=== PATIENT | male | born 1995 | race Caucasian/White ===

== ENCOUNTER → 2021-12-27 10:47 | Outpatient (CLI) | payer OTHER, SELFPAY ==
[2021-12-27 13:07] LABS: BUN Creatinine Ratio 15.9 (6-22); Blood Urea Nitrogen 14 mg/dL (9-20); Calcium 9.5 mg/dL (8.4-10.2); Carbon Dioxide 29 mmol/L (22-32); Chloride 104 mmol/L (98-107); Cholesterol 158 mg/dL (140-199); Estimated Glomerular Filt Rate > 60 mL/min (>60); Glucose 113 mg/dL (70-100); HDL Cholesterol 39 mg/dL (40-60); HEMOLYSIS < 15 (0-50); LDL Cholesterol Calculated 88 mg/dL (<100); Potassium 4.8 mmol/L (3.4-5.1); Sodium 141 mmol/L (137-145); Triglycerides 154 mg/dL (35-150)
[2021-12-27 13:32] LABS: TSH w/ Reflex to FT4 0.71 uIU/mL (0.47-4.68)
[2021-12-27 15:13] LABS: Creatinine Urine Random 185.6 mg/dL
[2021-12-27 15:19] LABS: Microalbumin Urine Random 2.6 mg/dL (0-1.6)
[2021-12-27 16:28] LABS: Vitamin D 25 Hydroxy (D3) 32.5 ng/mL (30.0-100.0)
== END ==
PROVIDERS: PCP Student in an Organized Health Care Education/Training Program; Referring Provider Student in an Organized Health Care Education/Training Program; Visit Provider Student in an Organized Health Care Education/Training Program
DX: I10 Essential (primary) hypertension (principal); E55.9 Vitamin D deficiency, unspecified; E66.01 Morbid (severe) obesity due to excess calories; Z13.220 Encounter for screening for lipoid disorders
CPT/HCPCS: 36415; 80048; 80061; 82043; 82306; 82570; 84443

== ENCOUNTER → 2022-02-25 14:34 | Outpatient (CLI) | payer OTHER, SELFPAY ==
--- NOTE | 2022-02-25 14:36 | DI.RAD.S_ITS ---
PROCEDURE: XR CHEST 2V INDICATIONS: shortness of breath TECHNIQUE: 2 views of the chest were acquired. COMPARISON: None. FINDINGS: Surgical changes and devices: None. Lungs and pleura: Lungs are clear. No pleural effusions or pneumothorax. Mediastinum: Mediastinal contours are normal. Heart size is normal. Bones and chest wall: No suspicious bony abnormalities. Soft tissues appear unremarkable. IMPRESSION: No acute cardiopulmonary abnormality. Dictated by: Evert Bush M.D. on 02/25/2022 at 14:31 Approved by: Evert Bush M.D. on 02/25/2022 at 14:32
== END ==
PROVIDERS: PCP Student in an Organized Health Care Education/Training Program; Referring Provider Physician Assistant; Visit Provider Physician Assistant
DX: R06.02 Shortness of breath (principal)
CPT/HCPCS: 71046

== ENCOUNTER 2022-09-07 15:52 | Emergency (ER) | payer OTHER, SELFPAY ==
[2022-09-07 16:01] VITALS: BP 163/106; PULSE 125; RESP 24; TEMP 36.6; O2SAT 100; BMI 38.9
--- NOTE | 2022-09-07 16:05 | DI.RAD.S_ITS ---
PROCEDURE: XR CHEST 1V INDICATIONS: chest pain TECHNIQUE: One view of the chest was acquired. COMPARISON: [facility], CR, XR CHEST 2V, 02/25/2022, 14:24. FINDINGS: Surgical changes and devices: None. Lungs and pleura: Lungs are clear. No pleural effusions or pneumothorax. Mediastinum: Mediastinal contours appear normal. Heart size is normal. Bones and chest wall: No suspicious bony lesions. Overlying soft tissues appear unremarkable. IMPRESSION: No acute process. Dictated by: Lorraine Ansari M.D. on 09/07/2022 at 16:38 Approved by: Lorraine Ansari M.D. on 09/07/2022 at 16:38
[2022-09-07 17:11] LABS: Prothrombin Time 11.5 SECONDS (10.1-12.7)
[2022-09-07 17:14] LABS: PTT Partial Thromboplastin Tim 32 SECONDS (26-36)
[2022-09-07 17:16] LABS: Alanine Aminotransferase 41 IU/L (<50); Alkaline Phosphatase 61 U/L (38-126); Aspartate Aminotransferase 29 IU/L (17-59); BUN Creatinine Ratio 12.9 (6-22); Bilirubin Total 0.5 mg/dL (0.2-1.3); Blood Urea Nitrogen 11 mg/dL (9-20); Calcium 8.9 mg/dL (8.4-10.2); Carbon Dioxide 27 mmol/L (22-32); Chloride 101 mmol/L (98-107); Creatine Kinase 182 U/L (55-170); Estimated Glomerular Filt Rate > 60 mL/min (>60); Glucose 101 mg/dL (70-100); HEMOLYSIS < 15 (0-50); Lipase 46 U/L (23-300); Potassium 3.6 mmol/L (3.4-5.1); Sodium 141 mmol/L (137-145)
[2022-09-07 17:17] LABS: Add Manual Diff / Slide Review NO; Basophils Absolute Auto 100 /uL (0-100); Basophils Percent Auto 0.9 % (0-2); Eosinophils Absolute Auto 600 /uL (0-450); Eosinophils Percent Auto 5.1 % (2-4); Hematocrit 44.2 % (41-53); Hemoglobin 15.4 g/dL (13.5-17.5); Lymphocytes Absolute Auto 2700 /uL (1100-4500); Lymphocytes Percent Auto 25.3 % (25-40); Mean Corpuscular HGB Conc 34.8 % (30-36); Mean Corpuscular Hemoglobin 27.1 PG (26-34); Monocytes Absolute Auto 1100 /uL (0-900); Monocytes Percent Auto 10.6 % (3-14); Neutrophils Absolute Auto 6300 /uL (1500-7000); Neutrophils Percent Auto 58.1 % (50-75); Platelet Count 402 X10^3/uL (150-400); Red Blood Cell Count 5.67 X10^6/uL (4.5-5.9); White Blood Cell Count 10.8 X10^3/uL (4.5-11.0)
[2022-09-07 17:21] LABS: D Dimer 324 ng/ml (<500)
[2022-09-07 17:27] LABS: Troponin I < 0.012 ng/mL (0.01-0.034)
[2022-09-07 17:31] LABS: Creatine Kinase MB 1.77 ng/mL (<2.37)
[2022-09-07 19:12] VITALS: PULSE 114; O2SAT 98
[2022-09-07 19:13] VITALS: BP 169/103; PULSE 110; O2SAT 97
[2022-09-07 19:30] VITALS: BP 179/85; PULSE 89; O2SAT 97
[2022-09-07 19:54] LABS: Creatine Kinase 170 U/L (55-170)
[2022-09-07 20:00] VITALS: BP 165/87; PULSE 91; RESP 24; O2SAT 97
[2022-09-07 20:07] LABS: Troponin I < 0.012 ng/mL (0.01-0.034)
[2022-09-07 20:10] LABS: CKMB % Relative Index 0.8 % (1.5-5.0); Creatine Kinase MB 1.35 ng/mL (<2.37)
[2022-09-07 20:30] VITALS: BP 151/94; PULSE 83; RESP 23; O2SAT 97
--- NOTE | 2022-09-07 20:30 | ED_ITS ---
HPI - Chest Pain General Chief Complaint: Chest Pain Stated Complaint: states stroke high blood pressure Time Seen by Provider: 09/07/22 19:17 Source: patient Mode of arrival: Ambulatory Limitations: no limitations History of Present Illness HPI narrative: Patient is a 26-year-old male. Does have a history of hypertension. Is on medications for this. He states that at baseline his blood pressure at home normally ranges in the 150s to 160s systolic. He states that his primary doctor knows about this and they are working on getting it down. Starting earlier today he has had higher than normal blood pressure with systolic in the 200s. He also reported the headache and some chest discomfort. The time of my exam his symptoms have all completely gone away. They did go away on their own while he was waiting to be evaluated here in the ER. He is never had a heart attack or stroke in the past. Because of his headache he was concerned that maybe he was having a stroke and also could not explain why his blood pressure was elevated. Related Data Previous Rx's Medication Instructions Recorded albuterol sulfate 90 mcg/actuation 2 puff inhalation QID #18 grams 04/04/22 aerosol inhaler (Ventolin HFA) tiotropium bromide 18 mcg capsule 1 cap inhalation DAILY #1 inh 04/28/22 with inhalation device (Spiriva with HandiHaler) amlodipine 10 mg tablet 10 mg PO DAILY #90 tabs 06/09/22 Allergies Allergy/AdvReac Type Severity Reaction Status Date / Time No Known Drug Allergies Allergy Verified 09/07/22 16:01 Review of Systems Constitutional Constitutional: Reports system reviewed and no additional complaints, except as documented Eyes Eyes: Reports system reviewed and no additional complaints, except as documented Cardiovascular Cardiovascular: Reports system reviewed and no additional complaints, except as documented Respiratory Respiratory: Reports system reviewed and no additional complaints, except as documented Neurologic Neurologic: Reports system reviewed and no additional complaints, except as do cumented Patient History Medical History RAD (reactive airway disease) Surgical History No history of previous surgery (09/2015) Family History Brother Age: 30 Hypertension Grandfather Age: 71 Diabetes mellitus Hypertension Grandmother Age: 70 Diabetes mellitus Hypertension High cholesterol Mother Age: 54 Diabetes mellitus Hypertension Social History Smoking Status: Never smoker Smoking Status: Never smoker alcohol intake frequency: holidays/special occasions only Substance Use Type: does not use Exam Initial Vital Signs Initial Vital Signs: Vital Signs Temperature 97.8 F 09/07/22 16:01 Pulse Rate 125 H 09/07/22 16:01 Respiratory Rate 24 09/07/22 16:01 Blood Pressure 163/106 H 09/07/22 16:01 Pulse Oximetry 100 09/07/22 16:01 Oxygen Delivery Method 09/07/22 16:01 Const General: cooperative, comfortable and No ill appearing HENMT Head: normal to inspection and normocephalic Resp Effort & Inspection: normal respiratory effort Cardio Rate: regular rate Rhythm: regular rhythm Neuro General: patient alert, patient awake, patient oriented x3 and moves all extremities Speech: speech normal Gait: normal gait Motor: muscle tone normal throughout Extrem General: No edema Course Orders Ordered: ED Orders 09/07/22 19:30 Troponin & CK Cardiac Panel Stat Vital Signs Vital signs: Vital Signs - 8 hr 09/07/22 19:12 09/07/22 19:13 09/07/22 19:13 Pulse Rate 114 H 110 H Respiratory Rate Blood Pressure 169/103 H Pulse Oximetry 98 97 09/07/22 19:30 09/07/22 19:30 09/07/22 20:00 Pulse Rate 89 Respiratory Rate Blood Pressure 179/85 H 165/87 H Pulse Oximetry 97 09/07/22 20:00 09/07/22 20:30 09/07/22 20:30 Pulse Rate 91 H 83 Respiratory Rate 24 23 Blood Pressure 151/94 H Pulse Oximetry 97 97 MDM - Chest Pain Differential Diagnosis Differential diagnosis: Likely other (Hypertensive urgency, CVA, TIA, pulmonary edema, renal insufficiency, benign hypertension, migraine headache, and others) Condition is:: Resolved Chronic Condition is having:: Mild excerbation Condition is at treatment goal?: Yes Discussed with:: Patient and family at bedside Medical Records Data Attestation: I reviewed the patient's medical records. Medical records narrative: Does have a history of reactive airway disease come is on amlodipine. Lab Data Attestation: I reviewed the patient's lab results. Result diagrams: 09/07/22 16:20 09/07/22 16:20 Labs: Lab Results 09/07/22 09/07/22 09/07/22 Range/Units 16:20 16:20 16:20 WBC 10.8 (4.5-11.0) X10^3/uL RBC 5.67 (4.5-5.9) X10^6/uL Hgb 15.4 (13.5-17.5) g/dL Hct 44.2 (41-53) % MCV 78.0 L (80-100) fL MCH 27.1 (26-34) PG MCHC 34.8 (30-36) % RDW 13.0 (11.6-14.8) % Plt Count 402 H (150-400) X10^3/uL Neut % (Auto) 58.1 (50-75) % Lymph % (Auto) 25.3 (25-40) % [place] % (Auto) 10.6 (3-14) % Eos % (Auto) 5.1 H (2-4) % Baso % (Auto) 0.9 (0-2) % Neut # (Auto) 6300 (2892-9358) /uL Lymph # (Auto) 2700 (2113-4005) /uL [place] # (Auto) 1100 H (0-900) /uL Eos # (Auto) 600 H (0-450) /uL Baso # (Auto) 100 (0-100) /uL PT 11.5 (10.1-12.7) SECONDS INR 1.0 (0.9-1.3) APTT 32 (26-36) SECONDS D-Dimer (<500) ng/ml Sodium 141 (137-145) mmol/L Potassium 3.6 (3.4-5.1) mmol/L Chloride 101 (98-107) mmol/L Carbon Dioxide 27 (22-32) mmol/L BUN 11 (9-20) mg/dL Creatinine 0.85 (0.66-1.25) mg/dL Estimated GFR > 60 (>60) mL/min BUN/Creatinine Ratio 12.9 (6-22) Glucose 101 H (70-100) mg/dL Calcium 8.9 (8.4-10.2) mg/dL Magnesium 2.0 (1.6-2.3) mg/dL Total Bilirubin 0.5 (0.2-1.3) mg/dL AST 29 (17-59) IU/L ALT 41 (<50) IU/L Alkaline Phosphatase 61 (38-126) U/L Total Creatine Kinase 182 H (55-170) U/L CK-MB (CK-2) 1.77 (<2.37) ng/mL CK-MB (CK-2) Rel Index 1.0 L (1.5-5.0) % Troponin I < 0.012 (0.01-0.034) ng/mL Total Protein 8.0 (6.3-8.2) g/dL Lipase 46 (23-300) U/L 09/07/22 09/07/22 Range/Units 16:20 19:30 WBC (4.5-11.0) X10^3/uL RBC (4.5-5.9) X10^6/uL Hgb (13.5-17.5) g/dL Hct (41-53) % MCV (80-100) fL MCH (26-34) PG MCHC (30-36) % RDW (11.6-14.8) % Plt Count (150-400) X10^3/uL Neut % (Auto) (50-75) % Lymph % (Auto) (25-40) % [place] % (Auto) (3-14) % Eos % (Auto) (2-4) % Baso % (Auto) (0-2) % Neut # (Auto) (8266-8296) /uL Lymph # (Auto) (0538-7451) /uL [place] # (Auto) (0-900) /uL Eos # (Auto) (0-450) /uL Baso # (Auto) (0-100) /uL PT (10.1-12.7) SECONDS INR (0.9-1.3) APTT (26-36) SECONDS D-Dimer 324 (<500) ng/ml Sodium (137-145) mmol/L Potassium (3.4-5.1) mmol/L Chloride (98-107) mmol/L Carbon Dioxide (22-32) mmol/L BUN (9-20) mg/dL Creatinine (0.66-1.25) mg/dL Estimated GFR (>60) mL/min BUN/Creatinine Ratio (6-22) Glucose (70-100) mg/dL Calcium (8.4-10.2) mg/dL Magnesium (1.6-2.3) mg/dL Total Bilirubin (0.2-1.3) mg/dL AST (17-59) IU/L ALT (<50) IU/L Alkaline Phosphatase (38-126) U/L Total Creatine Kinase 170 (55-170) U/L CK-MB (CK-2) 1.35 (<2.37) ng/mL CK-MB (CK-2) Rel Index 0.8 L (1.5-5.0) % Troponin I < 0.012 (0.01-0.034) ng/mL Total Protein (6.3-8.2) g/dL Lipase (23-300) U/L Imaging Data Chest x-ray: Radiologist's Impression: [address] [address] XRay Report Signed Patient: Steve Reeves MR#: [id number] : 1995 Acct:[id number] Age/Sex: 26 / M Date of Service: 09/07/22 Loc: ED Accession Number: [id number] ?? Procedure: XR chest 1V Ordering Provider: Mariella Yuan D.O. PROCEDURE:? XR CHEST 1V ? INDICATIONS:? chest pain ? TECHNIQUE:? One view of the chest was acquired.? ? COMPARISON:? [facility], CR, XR CHEST 2V, 02/25/2022, 14:24. ? FINDINGS:? ? Surgical changes and devices:? None.? ? Lungs and pleura:? Lungs are clear.? No pleural effusions or pneumothorax.? ? Mediastinum:? Mediastinal contours appear normal.? Heart size is normal.? ? Bones and chest wall:? No suspicious bony lesions.? Overlying soft tissues appear unremarkable.? ? IMPRESSION:? No acute process. ? ? Dictated by: Lorraine Ansari M.D. on 09/07/2022 at 16:38 ? ? Approved by: Lorraine Ansari M.D. on 09/07/2022 at 16:38? ECG Data Attestation: I personally reviewed and interpreted this ECG as follows: Interpretation: Sinus tachycardia Ventricular rate of 117 Normal axis Normal QRS Nonspecific ST T wave changes MDM Narrative Medical decision making narrative: Patient is still somewhat hypertensive but is now completely asymptomatic. Some nonspecific changes on his EKG with 2- troponins. His D-dimer is negative. His kidney functions unremarkable. He is not in heart failure. Her lower extremity swelling. Has no headache. Low suspicion for subarachnoid hemorrhage. I did have a discussion with him regarding his blood pressure. We did discuss how he should be taking his blood pressure at home. He was given strict return precautions and follow-up instructions. He expressed understanding and agreement. Discharge Plan Departure Patient Disposition: Home Clinical Impression: Essential hypertension, Atypical chest pain Instructions: High Blood Pressure Activity Restrictions/Additional Instructions: Do recommend that you continue to take your blood pressure at home and record the results like we discussed. Continue all of your medications as directed. Return to the emergency department for any new or worsening symptoms. Prescriptions: No Action albuterol sulfate [Ventolin HFA] 90 mcg/actuation HFA aerosol inhaler 2 puff INHALATION QID Qty: 18 11RF Spiriva with HandiHaler 18 mcg capsule, w/inhalation device 1 cap inhalation DAILY Qty: 1 12RF Rx Instructions: puncture 1 cap using device; one dose = 2 inhalations amlodipine 10 mg tablet 10 mg PO DAILY Qty: 90 2RF Hold Instructions: Need f/u labs Referrals: Km Gaspar MD [Primary Care Provider] - Stand Alone Forms: Patient Portal/API
[2022-09-08 16:55] LABS: Albumin Globulin Ratio 1.7 (1.0-2.8)
== END 2022-09-07 20:43 | disposition home or self-care (01) ==
PROVIDERS: Emergency Medicine; Emergency Provider Emergency Medicine; PCP Student in an Organized Health Care Education/Training Program
DX: I10 Essential (primary) hypertension (principal); R07.89 Other chest pain; R51.9 Headache, unspecified
CPT/HCPCS: 36415; 71045; 80053; 82550; 82553; 83690; 83735; 84484; 85025; 85379; 85610; 85730; 93005; 99284

== ENCOUNTER → 2023-07-28 12:50 | Outpatient (CLI) | payer OTHER, SELFPAY ==
[2023-07-28 13:08] LABS: Add Manual Diff / Slide Review NO; Basophils Absolute Auto 100 /uL (0-100); Basophils Percent Auto 0.7 % (0-2); Eosinophils Absolute Auto 200 /uL (0-450); Eosinophils Percent Auto 1.9 % (2-4); Hematocrit 44.7 % (41-53); Hemoglobin 15.6 g/dL (13.5-17.5); Lymphocytes Absolute Auto 3000 /uL (1100-4500); Lymphocytes Percent Auto 26.3 % (25-40); Mean Corpuscular Hemoglobin 27.3 PG (26-34); Monocytes Absolute Auto 1200 /uL (0-900); Monocytes Percent Auto 10.3 % (3-14); Neutrophils Absolute Auto 7000 /uL (1500-7000); Neutrophils Percent Auto 60.8 % (50-75); Platelet Count 448 X10^3/uL (150-400); Red Blood Cell Count 5.73 X10^6/uL (4.5-5.9); White Blood Cell Count 11.6 X10^3/uL (4.5-11.0)
[2023-07-28 13:14] LABS: Hemoglobin A1C% w Est Avg Glu 5.2 % (4.0-6.0)
[2023-07-28 13:20] LABS: Alanine Aminotransferase 39 IU/L (<50); Albumin 5.2 g/dL (3.5-5.0); Albumin Globulin Ratio 1.4 (1.0-2.8); Alkaline Phosphatase 51 U/L (38-126); Aspartate Aminotransferase 34 IU/L (17-59); BUN Creatinine Ratio 13.7 (6-22); Bilirubin Total 0.9 mg/dL (0.2-1.3); Blood Urea Nitrogen 14 mg/dL (9-20); Calcium 9.4 mg/dL (8.4-10.2); Carbon Dioxide 28 mmol/L (22-32); Chloride 94 mmol/L (98-107); Estimated Glomerular Filt Rate > 60 mL/min (>60); Globulin 3.6 g/dL (1.7-4.1); Glucose 84 mg/dL (70-100); HEMOLYSIS < 15 (0-50); Potassium 3.6 mmol/L (3.4-5.1); Sodium 135 mmol/L (137-145); Total Protein 8.8 g/dL (6.3-8.2)
[2023-07-28 15:25] LABS: Creatinine Urine Random 248.8 mg/dL
[2023-07-28 15:29] LABS: Microalbumi Creatinin Ratio Ur 6.4 ug/mg CR (<30); Microalbumin Urine Random 1.6 mg/dL (0-1.6)
== END ==
PROVIDERS: PCP Family Medicine; Referring Provider Family Medicine; Visit Provider Family Medicine
DX: I10 Essential (primary) hypertension (principal); R73.01 Impaired fasting glucose; J45.909 Unspecified asthma, uncomplicated
CPT/HCPCS: 36415; 80053; 82043; 82570; 83036; 85025

== ENCOUNTER → 2024-07-21 08:41 | Outpatient (CLI) | payer OTHER, SELFPAY ==
[2024-07-21 10:35] LABS: Hematocrit 44.5 % (41-53); Hemoglobin 15.6 g/dL (13.5-17.5); Mean Corpuscular HGB Conc 35.1 % (30-36); Mean Corpuscular Volume 79.9 fL (80-100); Platelet Count 388 X10^3/uL (150-400); Red Blood Cell Count 5.57 X10^6/uL (4.5-5.9); Red Cell Distribution Width 12.6 % (11.6-14.8); White Blood Cell Count 9.4 X10^3/uL (4.5-11.0)
[2024-07-21 10:50] LABS: Cholesterol 155 mg/dL (140-199); HDL Cholesterol 35 mg/dL (40-60); LDL Cholesterol Calculated 97 mg/dL (<100); Triglycerides 115 mg/dL (35-150)
[2024-07-21 15:38] LABS: HIV 1 & 2 Ab/Ag 4th Gen Combo NEGATIVE (NEGATIVE); Hep C Virus Ab w/Reflex Quant NEGATIVE s/c (NEGATIVE)
[2024-07-21 16:12] LABS: Alanine Aminotransferase 30 IU/L (<50); Albumin 4.5 g/dL (3.5-5.0); Albumin Globulin Ratio 1.5 (1.0-2.8); Alkaline Phosphatase 49 U/L (38-126); Aspartate Aminotransferase 31 IU/L (17-59); Bilirubin Total 0.6 mg/dL (0.2-1.3); Calcium 9.5 mg/dL (8.4-10.2); Carbon Dioxide 30 mmol/L (22-32); Chloride 99 mmol/L (98-107); Glucose 98 mg/dL (70-100); HEMOLYSIS < 15 (0-50); Potassium 4.5 mmol/L (3.4-5.1); Sodium 136 mmol/L (137-145); Total Protein 7.5 g/dL (6.3-8.2)
[2024-07-21 16:16] LABS: BUN Creatinine Ratio 16.7 (6-22); Blood Urea Nitrogen 16 mg/dL (9-20); Estimated Glomerular Filt Rate > 60 mL/min (>60)
== END ==
PROVIDERS: PCP Family Medicine; Referring Provider Family Medicine; Visit Provider Family Medicine
DX: Z00.00 Encounter for general adult medical examination without abnormal findings (principal); E78.2 Mixed hyperlipidemia; R73.01 Impaired fasting glucose; I10 Essential (primary) hypertension; J45.909 Unspecified asthma, uncomplicated; R06.83 Snoring; F32.A Depression, unspecified
CPT/HCPCS: 36415; 80053; 80061; 83036; 85027; 86803; 87389

== ENCOUNTER → 2024-08-27 12:20 | Outpatient (CLI) | payer OTHER, SELFPAY ==
[2024-08-27 13:26] LABS: COVID-19 CEPHEID 4-PLEX PCR Negative (Negative); Influenza A - CEPHEID Flu A NEGATIVE (NEGATIVE); Influenza B - CEPHEID Flu B NEGATIVE (NEGATIVE); Respiratory Syncytial Virus Negative (Negative)
== END ==
PROVIDERS: PCP Family Medicine; Visit Provider Student in an Organized Health Care Education/Training Program
DX: J02.9 Acute pharyngitis, unspecified (principal); R05.1 Acute cough
CPT/HCPCS: 0241U; 87070

== ENCOUNTER 2024-08-27 12:52 | Emergency (ER) | payer OTHER, SELFPAY ==
[2024-08-27 12:56] VITALS: BP 134/89; PULSE 106; RESP 24; TEMP 36.9; O2SAT 100; BMI 35.0
--- NOTE | 2024-08-27 12:59 | DI.RAD.S_ITS ---
PROCEDURE: XR CHEST 1V INDICATIONS: chest pain TECHNIQUE: One view of the chest was acquired. COMPARISON: [facility], CR, XR CHEST 1V, 09/07/2022, 16:19. FINDINGS: Surgical changes and devices: None. Lungs and pleura: Lungs are clear. No pleural effusions or pneumothorax. Mediastinum: Mediastinal contours appear normal. Heart size is normal. Bones and chest wall: No suspicious bony lesions. Overlying soft tissues appear unremarkable. IMPRESSION: No acute cardiopulmonary abnormality is seen. Dictated by: Mike Willis M.D. on 08/27/2024 at 13:56 Approved by: Mike Willis M.D. on 08/27/2024 at 13:56
--- NOTE | 2024-08-27 13:08 | EKG_ITS ---
[address] [address] Test Date: 2024-08-27 Pat Name: Steve Reeves Department: [facility] Room: Gender: Male [employer] Technician: BETSEY : 1995 Requested By: Order Number: [id number] Reading MD: Pop Law MD Measurements Intervals [place] Rate: 89 P: 35 ID: [id number] QRS: 34 QRSD: 90 T: 26 QT: 354 QTc: 430 Interpretive Statements Normal sinus rhythm Electronically Signed On 08-28-2024 6:56:25 PST by Pop Law MD
[2024-08-27 13:58] LABS: Add Manual Diff / Slide Review NO; Basophils Absolute Auto 0 /uL (0-100); Basophils Percent Auto 0.2 % (0-2); Eosinophils Absolute Auto 300 /uL (0-450); Eosinophils Percent Auto 1.4 % (2-4); Hematocrit 44.7 % (41-53); Hemoglobin 15.6 g/dL (13.5-17.5); Lymphocytes Absolute Auto 1100 /uL (1100-4500); Lymphocytes Percent Auto 5.4 % (25-40); Mean Corpuscular HGB Conc 34.8 % (30-36); Mean Corpuscular Hemoglobin 27.5 PG (26-34); Mean Corpuscular Volume 79.2 fL (80-100); Monocytes Absolute Auto 1700 /uL (0-900); Neutrophils Absolute Auto 17600 /uL (1500-7000); Platelet Count 433 X10^3/uL (150-400); Red Blood Cell Count 5.65 X10^6/uL (4.5-5.9); Red Cell Distribution Width 12.8 % (11.6-14.8); White Blood Cell Count 20.7 X10^3/uL (4.5-11.0)
[2024-08-27 14:03] LABS: INR 1.1 (0.9-1.3); Prothrombin Time 12.2 SECONDS (9.4-12.5)
[2024-08-27 14:06] LABS: PTT Partial Thromboplastin Tim 35 SECONDS (25.1-36.5)
[2024-08-27 14:08] LABS: Alanine Aminotransferase 37 IU/L (<50); Albumin 5.2 g/dL (3.5-5.0); Albumin Globulin Ratio 1.5 (1.0-2.8); Alkaline Phosphatase 57 U/L (38-126); Aspartate Aminotransferase 50 IU/L (17-59); BUN Creatinine Ratio 13.9 (6-22); Bilirubin Total 1.6 mg/dL (0.2-1.3); Blood Urea Nitrogen 14 mg/dL (9-20); Calcium 9.6 mg/dL (8.4-10.2); Carbon Dioxide 27 mmol/L (22-32); Chloride 99 mmol/L (98-107); Creatine Kinase 232 U/L (55-170); Estimated Glomerular Filt Rate > 60 mL/min (>60); Globulin 3.5 g/dL (1.7-4.1); Glucose 118 mg/dL (70-100); Lipase 55 U/L (23-300); Magnesium 1.6 mg/dL (1.6-2.3); Sodium 137 mmol/L (137-145); Total Protein 8.7 g/dL (6.3-8.2)
[2024-08-27 14:09] LABS: HEMOLYSIS 135 (0-50)
[2024-08-27 14:19] VITALS: BP 151/89; O2SAT 97
[2024-08-27 14:20] LABS: NT-proBNP (BNP-Adult 18+) < 20 pg/mL (<125); Troponin I < 0.012 ng/mL (0.01-0.034)
[2024-08-27 14:30] VITALS: PULSE 80; RESP 18; O2SAT 99
[2024-08-27 14:31] VITALS: BP 145/75; PULSE 75; RESP 13; O2SAT 99
--- NOTE | 2024-08-27 14:41 | ED_ITS ---
HPI - Chest Pain General Chief Complaint: Chest Pain Stated Complaint: sore throat and chest pain. Time Seen by Provider: 08/27/24 13:47 Source: patient Mode of arrival: Wheelchair Limitations: no limitations History of Present Illness HPI narrative: Patient is sent here from walk-in clinic for complaints of cough cold congestion body aches fever chills sore throat chest pain for the past 3 days. Chest pain is substernal worse with swallowing or change in position or deep breath. Had loss of appetite and has had some vomiting. No known sick contacts. Patient does have history of asthma. However no wheezing or respiratory distress. History of reflux but does not feel the same. Related Data Previous Rx's Medication Instructions Recorded albuterol sulfate 2.5 mg/3 mL 2.5 mg (3 mL) inhalation QID PRN 09/20/22 (0.083 %) solution for nebulization bronchospasm #180 mL clonidine HCl 0.2 mg tablet 0.2 mg PO TID PRN hypertensive 09/20/22 emergency #20 tabs nebulizers #1 ea 09/20/22 lisinopril 20 mg tablet 20 mg PO DAILY #90 tabs 07/24/23 budesonide 0.5 mg/2 mL suspension 0.5 mg (2 mL) inhalation BID #180 10/08/23 for nebulization mL ipratropium bromide 0.02 % 2.5 ml inhalation BID shortness of 11/16/23 solution for inhalation breath or wheezing #150 mL albuterol sulfate 90 mcg/actuation 2 puff inhalation QID #18 grams 06/20/24 aerosol inhaler (Ventolin HFA) fluoxetine 20 mg capsule (Prozac) 20 mg PO DAILY #30 caps 07/21/24 chlorthalidone 25 mg tablet 25 mg PO DAILY blood pressure #90 07/24/24 tabs ondansetron 4 mg disintegrating 4 mg PO Q8H PRN nausea and 08/27/24 tablet vomiting #20 tabs pantoprazole 40 mg tablet,delayed 40 mg PO DAILY #30 tabs 08/27/24 release (Protonix) Allergies Allergy/AdvReac Type Severity Reaction Status Date / Time No Known Drug Allergies Allergy Verified 08/27/24 12:12 Review of Systems Review of Systems Narrative: GENERAL: Negative chills, fatigue, malaise, fever, sweats. HEENT: Negative sinus pain, ear pain, sore throat RESPIRATORY: Positive dyspnea, cough CARDIOVASCULAR: Positive chest pain, negative palpitations GASTROINTESTINAL: Positive nausea, vomiting, negative abdominal pain : Negative dysuria, frequency, hematuria MUSCULOSKELETAL: Negative muscle or bony pain SKIN: Negative rash, skin lesions NEUROLOGIC: Negative weakness, numbness ROS Unobtainable: All systems reviewed & are unremarkable except as noted in HPI and below Patient History Medical History (Updated 08/27/24 @ 16:48 by Ty Sharpe MD) Depression, unspecified Mixed hyperlipidemia Morbid obesity IFG (impaired fasting glucose) RAD (reactive airway disease) Surgical History No history of previous surgery (09/2015) Family History Brother Age: 30 Hypertension Grandfather Age: 71 Diabetes mellitus Hypertension Grandmother Age: 70 Diabetes mellitus Hypertension High cholesterol Mother Age: 54 Diabetes mellitus Hypertension Social History Smoking Status: Never smoker Smoking Status: Never smoker alcohol intake frequency: holidays/special occasions only Exam Narrative Exam Narrative: GENERAL: in no distress, not toxic not dyspneic HEAD: Normocephalic. EYES: Pupils equal round ENT: Mucous membranes moist. NECK: Trachea midline. CARDIOVASCULAR: Regular rate and rhythm no friction rub no murmur RESPIRATORY: Clear to auscultation. Breath sounds equal bilaterally. No wheezes, rales, or rhonchi. Reproducible sternal tenderness on palpation and deep breath and cough. GASTROINTESTINAL: Abdomen soft, non-tender EXTREMITIES: No gross deformities. BACK: No flank tenderness. NEURO: AOx4. SKIN: Warm and dry PSYCH: Not anxious, is cooperative Initial Vital Signs Initial Vital Signs: Vital Signs Temperature 98.5 F 08/27/24 12:56 Pulse Rate 106 H 08/27/24 12:56 Respiratory Rate 24 08/27/24 12:56 Blood Pressure 134/89 08/27/24 12:56 Pulse Oximetry 100 08/27/24 12:56 Oxygen Delivery Method Room Air 08/27/24 12:56 Course Orders Ordered: Discontinued Medications Aspirin (Aspirin 81 Mg Chew Tab) 324 mg PO NOW ONE Stop: 08/27/24 13:00 Last Admin: 08/27/24 14:46 Dose: Not Given Documented By: NAI Sodium Chloride (Normal Saline 0.9%) 1,000 mls @ 1,000 mls/hr IV BOLUS ONE Stop: 08/27/24 15:39 Last Infusion: 08/27/24 16:50 Dose: Infused Documented By: Admin: 08/27/24 15:00 Dose: 1,000 mls/hr Documented By: NAI Ketorolac Tromethamine (Ketorolac 30 Mg/Ml Vial) 15 mg IV NOW ONE Stop: 08/27/24 14:41 Last Admin: 08/27/24 15:00 Dose: 15 mg Documented By: NAI Ondansetron HCl (Ondansetron 4 Mg/2 Ml Inj) 4 mg IV NOW ONE Stop: 08/27/24 14:41 Last Admin: 08/27/24 14:59 Dose: 4 mg Documented By: NAI Vital Signs Vital signs: Vital Signs - 8 hr 08/27/24 12:56 08/27/24 14:19 08/27/24 14:19 Temperature 98.5 F Pulse Rate 106 H Respiratory Rate 24 Blood Pressure 134/89 151/89 H Pulse Oximetry 100 97 Oxygen Delivery Method Room Air 08/27/24 14:30 08/27/24 14:31 08/27/24 14:31 Temperature Pulse Rate 80 75 Respiratory Rate 18 13 Blood Pressure 145/75 H Pulse Oximetry 99 99 Oxygen Delivery Method MDM - Chest Pain Lab Data 08/27/24 13:40 08/27/24 13:40 Labs: Lab Results 08/27/24 08/27/24 Range/Units 13:40 14:48 WBC 20.7 H (4.5-11.0) X10^3/uL RBC 5.65 (4.5-5.9) X10^6/uL Hgb 15.6 (13.5-17.5) g/dL Hct 44.7 (41-53) % MCV 79.2 L (80-100) fL MCH 27.5 (26-34) PG MCHC 34.8 (30-36) % RDW 12.8 (11.6-14.8) % Plt Count 433 H (150-400) X10^3/uL Neut % (Auto) 85.0 H (50-75) % Lymph % (Auto) 5.4 L (25-40) % [place] % (Auto) 8.0 (3-14) % Eos % (Auto) 1.4 L (2-4) % Baso % (Auto) 0.2 (0-2) % Neut # (Auto) 85419 H (4361-3974) /uL Lymph # (Auto) 1100 (6232-1179) /uL [place] # (Auto) 1700 H (0-900) /uL Eos # (Auto) 300 (0-450) /uL Baso # (Auto) 0 (0-100) /uL PT 12.2 (9.4-12.5) SECONDS INR 1.1 (0.9-1.3) APTT 35 (25.1-36.5) SECONDS Sodium 137 (137-145) mmol/L Potassium 4.0 (3.4-5.1) mmol/L Chloride 99 (98-107) mmol/L Carbon Dioxide 27 (22-32) mmol/L BUN 14 (9-20) mg/dL Creatinine 1.01 (0.66-1.25) mg/dL Estimated GFR > 60 (>60) mL/min BUN/Creatinine Ratio 13.9 (6-22) Glucose 118 H (70-100) mg/dL Calcium 9.6 (8.4-10.2) mg/dL Magnesium 1.6 (1.6-2.3) mg/dL Total Bilirubin 1.6 H (0.2-1.3) mg/dL AST 50 (17-59) IU/L ALT 37 (<50) IU/L Alkaline Phosphatase 57 (38-126) U/L Total Creatine Kinase 232 H (55-170) U/L Troponin I < 0.012 (0.01-0.034) ng/mL NT-Pro-B Natriuret Pep < 20 (<125) pg/mL Total Protein 8.7 H (6.3-8.2) g/dL Albumin 5.2 H (3.5-5.0) g/dL Globulin 3.5 (1.7-4.1) g/dL Albumin/Globulin Ratio 1.5 (1.0-2.8) Lipase 55 (23-300) U/L Chlamy pneumoniae PCR Not detected (Not Detect) Adenovirus (PCR) Not detected (Not Detect) B. pertussis DNA (PCR) Not detected (Not Detect) B.parapertussis DNA PCR Not detected (Not Detecte) Coronavirus OC43 (PCR) Not detected (Not Detect) Coronavirus HKU1 (PCR) Not detected (Not Detect) Coronavirus 229E (PCR) Not detected (Not Detect) SARS-CoV-2 (PCR) Not detected (Not Detecte) Coronavirus NL63 (PCR) Not detected (Not Detect) Human Metapneumovir PCR Not detected (Not Detect) Influenza Type A (PCR) Not detected (Not Detect) Influenza Type B (PCR) Not detected (Not Detect) M. pneumoniae (PCR) Not detected (Not Detect) Parainfluenza 1 (PCR) Not detected (Not Detect) Parainfluenza 2 (PCR) Not detected (Not Detect) Parainfluenza 3 (PCR) Not detected (Not Detect) Parainfluenza 4 (PCR) Not detected (Not Detect) RSV (PCR) Not detected (Not Detect) Entero/Rhino (PCR) Not detected (Not Detect) Imaging Data CT scan - chest: Radiologist's Impression: [place] [id number] CT Scan Report Signed Patient: Steve Reeves MR#: [id number] : 1995 Acct:[id number] Age/Sex: 28 / M Date of Service: 08/27/24 Loc: Accession Number: [id number] Procedure: CT angio chest PE protocol Ordering Provider: Ty Sharpe MD PROCEDURE: CT ANGIO CHEST PE PROTOCOL INDICATIONS: Chest pain TECHNIQUE: After the administration of intravenous contrast, 2 mm thick sections acquired from the pulmonary apices to the posterior costophrenic angles. 3-dimensional maximum intensity projection (MIP) coronal and sagittal reformats were then acquired through the thorax. For radiation dose reduction, the following was used: automated exposure control, adjustment of mA and/or kV according to patient size. COMPARISON: None. FINDINGS: Image quality: Diagnostic. Pulmonary arteries: Pulmonary arteries are normal in size, and demonstrate no intraluminal filling defects to suggest central pulmonary embolism. Lower Neck: No enlarged lymph nodes. Thyroid: No thyroid nodules which require sonographic follow up, per consensus guidelines. Axillae: No enlarged lymph nodes. Chest Wall: Unremarkable. Bones: Unremarkable. Lungs and Pleura: No pneumothorax or pleural effusions. No consolidation or suspicious nodules. Heart: Heart size is normal. No pericardial effusion. Thoracic Vessels: No aortic aneurysm. Mediastinum and Jodi: No enlarged lymph nodes. There are small bilateral hilar lymph nodes as well as a small subcarinal lymph node. These are likely reactive in nature. Esophagus: No wall thickening. No hiatal hernia. Upper Abdomen: Visualized upper abdomen solid organs and bowel loops appear normal. IMPRESSION: No pulmonary embolus. No acute cardiopulmonary process. Note made of small symmetric bilateral hilar and subcarinal lymph nodes which most likely are simply reactive in nature. Dictated by: Mike Willis M.D. on 08/27/2024 at 15:40 Approved by: Mike Willis M.D. on 08/27/2024 at 15:45 Chest x-ray: Radiologist's Impression: [address] [address] XRay Report Signed Patient: Steve Reeves MR#: [id number] : 1995 Acct:[id number] Age/Sex: 28 / M Date of Service: 08/27/24 Loc: ED Accession Number: [id number] Procedure: XR chest 1V Ordering Provider: Ty Sharpe MD PROCEDURE: XR CHEST 1V INDICATIONS: chest pain TECHNIQUE: One view of the chest was acquired. COMPARISON: [facility], , XR CHEST 1V, 09/07/2022, 16:19. FINDINGS: Surgical changes and devices: None. Lungs and pleura: Lungs are clear. No pleural effusions or pneumothorax. Mediastinum: Mediastinal contours appear normal. Heart size is normal. Bones and chest wall: No suspicious bony lesions. Overlying soft tissues appear unremarkable. IMPRESSION: No acute cardiopulmonary abnormality is seen. Dictated by: Mike Willis M.D. on 08/27/2024 at 13:56 Approved by: Mike iWllis M.D. on 08/27/2024 at 13:56 [facility] Narrative Medical decision making narrative: Patient is sent here from walk-in clinic for complaints of cough cold congestion body aches fever chills sore throat chest pain for the past 3 days. Chest pain is substernal worse with swallowing or change in position or deep breath. Had loss of appetite and has had some vomiting. No known sick contacts. Patient does have history of asthma. However no wheezing or respiratory distress. History of reflux but does not feel the same. After history and exam EKG CBC CMP respiratory panel CT chest EKG Toradol Zofran normal saline [facility] Medical records reviewed: Walk-in clinic notes prior to arrival Differential considered: Includes but not limited to pericarditis myocarditis pneumonia acid reflux bronchitis RSV rhino virus COVID costochondritis pleurisy Lab Test results independently reviewed as above. Pertinent findings: WBC 20.7 hemoglobin 15.6 INR 1.1 sodium 137 potassium 4.0 glucose 118 AST 50 ALT 37 troponin less than 0.012 BNP less than 20 lipase 55, respiratory panel negative Independently reviewed EKG normal sinus rhythm normal EKG rate 89 Imaging studies independently reviewed: CT chest no acute finding, chest x-ray no acute finding. Treatments: Toradol Zofran normal saline Re-evaluations: 4:45 p.m.. Patient feels much better. He states he was able to take a nap for an hour here. He received IV fluids. Also received Toradol. Reviewed with him possible viral syndrome costochondritis causing his symptoms. There were other viruses can cause his symptoms other than ones that were tested here. Return precautions reviewed. Work note provided. He desires discharge home. Discussion: Appropriate for discharge home exam is reassuring. White cell count noted however nonspecific. No fever here. Not toxic not dyspneic. No antibiotics are indicated at this time. Return precautions reviewed. He does have family doctor to follow up with. Diagnosis: Costochondritis viral syndrome nausea and vomiting Discharge Plan Departure Patient Disposition: Home Clinical Impression: Acute viral syndrome, Acute chest wall pain Nausea & vomiting Qualifiers: Vomiting type: unspecified Qualified Code(s): R11.2 - Nausea with vomiting, unspecified Instructions: DI for Costochondritis, DI for Viral Syndrome, Nausea and Vomiting-Adult Activity Restrictions/Additional Instructions: Your exam and laboratory studies imaging studies are reassuring. You likely had viral infection. No antibiotics are indicated at this time. Work note has been provided for you. Prescription for Protonix and Zofran has been provided for you as well. Keep well hydrated. Return if worse if any questions or concerns. See family doctor in a week for re-evaluation. Prescriptions: New pantoprazole [Protonix] 40 mg tablet,delayed release (DR/EC) 40 mg PO DAILY Qty: 30 0RF ondansetron 4 mg tablet,disintegrating 4 mg PO Q8H PRN (Reason: nausea and vomiting) Qty: 20 0RF No Action budesonide 0.5 mg/2 mL suspension for nebulization 0.5 mg inhalation BID Qty: 180 11RF ipratropium bromide 0.02 % solution 2.5 ml inhalation BID Qty: 150 11RF albuterol sulfate [Ventolin HFA] 90 mcg/actuation HFA aerosol inhaler 2 puff INHALATION QID Qty: 18 11RF chlorthalidone 25 mg tablet 25 mg PO DAILY Qty: 90 3RF lisinopril 20 mg tablet 20 mg PO DAILY Qty: 90 3RF (DME) nebulizers Misc See Rx Instructions .Route Qty: 1 0RF Rx Instructions: As directed albuterol sulfate 2.5 mg /3 mL (0.083 %) solution for nebulization 2.5 mg inhalation QID PRN (Reason: bronchospasm) Qty: 180 11RF clonidine HCl 0.2 mg tablet 0.2 mg PO TID PRN (Reason: hypertensive emergency) Qty: 20 0RF Rx Instructions: For BP >180/110 fluoxetine [Prozac] 20 mg capsule 20 mg PO DAILY Qty: 30 11RF Referrals: Snow Bowman DO [Primary Care Provider] - Stand Alone Forms: Patient Portal/API/Survey, Work Release Note
[2024-08-27] MEDS: ONDANSETRON 4 MG/2 ML INJ IV (14:59)
[2024-08-27] MEDS: KETOROLAC 30 MG/ML VIAL 15 MG IV (15:00)
[2024-08-27] MEDS: SODIUM CHLORIDE 0.9% 1,000 ML 1000 ML IV (15:00)
[2024-08-27 15:41] LABS: Adenovirus Not Detected (Not Detect); B. parapertussis Not Detected (Not Detecte); Bordetella pertussis Not Detected (Not Detect); Chlamydophila pneumoniae Not Detected (Not Detect); Coronavirus 229E Not Detected (Not Detect); Coronavirus HKU1 Not Detected (Not Detect); Coronavirus NL 63 Not Detected (Not Detect); Coronavirus OC43 Not Detected (Not Detect); Human Metapneumovirus Not Detected (Not Detect); Human Rhinovirus/Enterovirus Not Detected (Not Detect); Influenza A Not Detected (Not Detect); Influenza B Not Detected (Not Detect); Mycoplasma pneumoniae Not Detected (Not Detect); Parainfluenza Virus 1 Not Detected (Not Detect); Parainfluenza Virus 2 Not Detected (Not Detect); Parainfluenza Virus 3 Not Detected (Not Detect); Parainfluenza Virus 4 Not Detected (Not Detect); Respiratory Syncytial Virus Not Detected (Not Detect); SARS- CoV-2 Not Detected (Not Detecte)
[2024-08-27 16:42] VITALS: BP 147/74; PULSE 91; RESP 20; O2SAT 99
== END 2024-08-27 17:05 | disposition home or self-care (01) ==
PROVIDERS: Emergency Provider Emergency Medicine; PCP Family Medicine
DX: B34.9 Viral infection, unspecified (principal); R07.89 Other chest pain; M94.0 Chondrocostal junction syndrome [Tietze]; R11.2 Nausea with vomiting, unspecified; J02.9 Acute pharyngitis, unspecified; R05.1 Acute cough
CPT/HCPCS: 0241U; 36415; 71045; 71275; 80053; 82550; 83690; 83735; 83880; 84484; 85025; 85610; 85730; 87070; 87633; 93005; 93010; 96361; 96374; 96375; 99284; J1885; J2405; Q9967

== ENCOUNTER 2024-09-20 16:29 | Emergency (ER) | payer OTHER, SELFPAY ==
[2024-09-20] VITALS (8 sets, daily range): BP systolic 123–142; BP diastolic 60–88; PULSE 62–99; RESP 17–18; TEMP 36.9; O2SAT 97–100; BMI 35.0
[2024-09-20 17:02] LABS: Add Manual Diff / Slide Review NO; Basophils Absolute Auto 100 /uL (0-100); Basophils Percent Auto 0.8 % (0-2); Eosinophils Absolute Auto 100 /uL (0-450); Eosinophils Percent Auto 0.9 % (2-4); Hematocrit 42.9 % (41-53); Hemoglobin 15.2 g/dL (13.5-17.5); Lymphocytes Absolute Auto 2800 /uL (1100-4500); Lymphocytes Percent Auto 27.2 % (25-40); Mean Corpuscular HGB Conc 35.4 % (30-36); Mean Corpuscular Hemoglobin 27.6 PG (26-34); Monocytes Absolute Auto 900 /uL (0-900); Monocytes Percent Auto 8.6 % (3-14); Neutrophils Absolute Auto 6500 /uL (1500-7000); Neutrophils Percent Auto 62.5 % (50-75); Platelet Count 495 X10^3/uL (150-400); White Blood Cell Count 10.4 X10^3/uL (4.5-11.0)
[2024-09-20 17:08] LABS: Alanine Aminotransferase 35 IU/L (<50); Albumin 5.3 g/dL (3.5-5.0); Albumin Globulin Ratio 1.5 (1.0-2.8); Alkaline Phosphatase 59 U/L (38-126); Aspartate Aminotransferase 39 IU/L (17-59); BUN Creatinine Ratio 12.4 (6-22); Bilirubin Total 1.4 mg/dL (0.2-1.3); Blood Urea Nitrogen 14 mg/dL (9-20); Calcium 9.1 mg/dL (8.4-10.2); Carbon Dioxide 27 mmol/L (22-32); Chloride 96 mmol/L (98-107); Estimated Glomerular Filt Rate > 60 mL/min (>60); Globulin 3.5 g/dL (1.7-4.1); Glucose 113 mg/dL (70-100); HEMOLYSIS < 15 (0-50); Lipase 99 U/L (23-300); Sodium 136 mmol/L (137-145); Total Protein 8.8 g/dL (6.3-8.2)
--- NOTE | 2024-09-20 19:30 | ED_ITS ---
HPI - Abdominal Pain General Chief Complaint: Abdominal Pain Stated Complaint: vomiting, chills, abd px x2days Time Seen by Provider: 09/20/24 19:15 Source: patient Mode of arrival: Ambulatory History of Present Illness HPI narrative: 28-year-old male with history of anxiety presents by private vehicle for 3 days of nausea, vomiting, generalized abdominal pain, chills. Patient states that he was had innumerable episodes of nausea and vomiting and has been able to keep anything down. He also states that he has been quite stressed and his food intake is non-existent over the last 2-3 days. Denies alcohol use, denies previous abdominal surgeries. He states that he was pretty certain that his symptoms are related to his increased levels of stress, but it was concerned that he was dehydrated and can not keep anything down. Related Data Previous Rx's Medication Instructions Recorded albuterol sulfate 2.5 mg/3 mL 2.5 mg (3 mL) inhalation QID PRN 09/20/22 (0.083 %) solution for nebulization bronchospasm #180 mL clonidine HCl 0.2 mg tablet 0.2 mg PO TID PRN hypertensive 09/20/22 emergency #20 tabs nebulizers #1 ea 09/20/22 budesonide 0.5 mg/2 mL suspension 0.5 mg (2 mL) inhalation BID #180 10/08/23 for nebulization mL ipratropium bromide 0.02 % 2.5 ml inhalation BID shortness of 11/16/23 solution for inhalation breath or wheezing #150 mL albuterol sulfate 90 mcg/actuation 2 puff inhalation QID #18 grams 06/20/24 aerosol inhaler (Ventolin HFA) chlorthalidone 25 mg tablet 25 mg PO DAILY blood pressure #90 07/24/24 tabs ondansetron 4 mg disintegrating 4 mg PO Q8H PRN nausea and 08/27/24 tablet vomiting #20 tabs pantoprazole 40 mg tablet,delayed 40 mg PO DAILY #30 tabs 08/27/24 release (Protonix) lisinopril 20 mg tablet 20 mg PO DAILY #90 tabs 09/15/24 fluoxetine 40 mg capsule (Prozac) 40 mg PO DAILY #100 caps 09/17/24 hydroxyzine HCl 25 mg tablet 25 mg PO QID PRN anxiety #90 tabs 09/17/24 promethazine 25 mg tablet 25 mg PO Q6H PRN nausea and 09/20/24 vomiting #30 tabs Allergies Allergy/AdvReac Type Severity Reaction Status Date / Time No Known Drug Allergies Allergy Verified 09/17/24 16:05 Patient History Medical History Depression, unspecified Mixed hyperlipidemia Morbid obesity IFG (impaired fasting glucose) RAD (reactive airway disease) Surgical History No history of previous surgery (09/2015) Family History Brother Age: 33 Hypertension Grandfather Age: 74 Diabetes mellitus Hypertension Grandmother Age: 73 Diabetes mellitus Hypertension High cholesterol Mother Age: 57 Diabetes mellitus Hypertension Social History Smoking Status: Never smoker Smoking Status: Never smoker alcohol intake frequency: holidays/special occasions only Exam Initial Vital Signs Initial Vital Signs: Vital Signs Temperature 98.4 F 09/20/24 16:35 Pulse Rate 99 H 09/20/24 16:35 Respiratory Rate 17 09/20/24 16:35 Blood Pressure 142/88 H 09/20/24 16:35 Pulse Oximetry 100 09/20/24 16:35 Oxygen Delivery Method Room Air 09/20/24 16:35 Const: Awake, alert, no acute distress, nontoxic appearing Cardiac: regular rate, regular rhythm RESP: unlabored, clear bilaterally, no wheezing GI: Soft, nontender, nondistended, no rebound, no guarding Skin: Warm, Dry, intact, no rashes Neuro: AO x3, CN II-XII grossly intact, moves all extremities Course Orders Ordered: ED Orders 09/20/24 16:45 EKG-12 Lead Stat 09/20/24 16:46 Complete Blood Count AUTO DIFF Stat Comprehensive Metabolic Panel Stat Lipase Stat 09/20/24 19:27 Covid-19 + FLU A/B + RSV - PCR Stat Discontinued Medications Sodium Chloride (Normal Saline 0.9%) 1,000 mls @ 1,000 mls/hr IV BOLUS ONE Stop: 09/20/24 20:29 Last Infusion: 09/20/24 21:09 Dose: Infused Documented By: Admin: 09/20/24 19:59 Dose: 1,000 mls/hr Documented By: MIGUEL Ondansetron HCl (Ondansetron 4 Mg/2 Ml Inj) 4 mg IV NOW PRN PRN Reason: Nausea And Vomiting Last Admin: 09/20/24 19:59 Dose: 4 mg Documented By: MIGUEL Ondansetron HCl (Ondansetron 4 Mg Odt) 4 mg PO NOW PRN PRN Reason: Nausea And Vomiting Last Admin: 09/20/24 20:18 Dose: 4 mg Documented By: DAINA Potassium Chloride (Potassium Chloride 20 Meq Tab) 40 meq PO NOW ONE Stop: 09/20/24 19:18 Last Admin: 09/20/24 19:59 Dose: 40 meq Documented By: MIGUEL Vital Signs Vital signs: Vital Signs - 8 hr 09/20/24 19:26 09/20/24 19:30 09/20/24 19:30 Pulse Rate 75 82 Respiratory Rate 18 Blood Pressure 137/82 Pulse Oximetry 98 97 Oxygen Delivery Method 09/20/24 20:00 09/20/24 20:00 09/20/24 20:30 Pulse Rate 76 Respiratory Rate Blood Pressure 135/68 123/60 Pulse Oximetry 98 Oxygen Delivery Method 09/20/24 20:30 09/20/24 21:00 09/20/24 21:00 Pulse Rate 64 62 Respiratory Rate Blood Pressure 135/70 Pulse Oximetry 99 99 Oxygen Delivery Method 09/20/24 21:30 09/20/24 21:30 09/20/24 22:00 Pulse Rate 80 64 Respiratory Rate Blood Pressure 128/61 Pulse Oximetry 98 99 Oxygen Delivery Method Room Air 09/20/24 22:00 Pulse Rate Respiratory Rate Blood Pressure 123/60 Pulse Oximetry Oxygen Delivery Method MDM - Abdominal Pain Lab Data 09/20/24 16:46 09/20/24 16:46 Labs: Lab Results 09/20/24 09/20/24 Range/Units 16:46 19:27 WBC 10.4 (4.5-11.0) X10^3/uL RBC 5.50 (4.5-5.9) X10^6/uL Hgb 15.2 (13.5-17.5) g/dL Hct 42.9 (41-53) % MCV 78.0 L (80-100) fL MCH 27.6 (26-34) PG MCHC 35.4 (30-36) % RDW 13.0 (11.6-14.8) % Plt Count 495 H (150-400) X10^3/uL Neut % (Auto) 62.5 (50-75) % Lymph % (Auto) 27.2 (25-40) % [place] % (Auto) 8.6 (3-14) % Eos % (Auto) 0.9 L (2-4) % Baso % (Auto) 0.8 (0-2) % Neut # (Auto) 6500 (1641-5351) /uL Lymph # (Auto) 2800 (1913-7254) /uL [place] # (Auto) 900 (0-900) /uL Eos # (Auto) 100 (0-450) /uL Baso # (Auto) 100 (0-100) /uL Sodium 136 L (137-145) mmol/L Potassium 3.0 L (3.4-5.1) mmol/L Chloride 96 L (98-107) mmol/L Carbon Dioxide 27 (22-32) mmol/L BUN 14 (9-20) mg/dL Creatinine 1.13 (0.66-1.25) mg/dL Estimated GFR > 60 (>60) mL/min BUN/Creatinine Ratio 12.4 (6-22) Glucose 113 H (70-100) mg/dL Calcium 9.1 (8.4-10.2) mg/dL Total Bilirubin 1.4 H (0.2-1.3) mg/dL AST 39 (17-59) IU/L ALT 35 (<50) IU/L Alkaline Phosphatase 59 (38-126) U/L Total Protein 8.8 H (6.3-8.2) g/dL Albumin 5.3 H (3.5-5.0) g/dL Globulin 3.5 (1.7-4.1) g/dL Albumin/Globulin Ratio 1.5 (1.0-2.8) Lipase 99 (23-300) U/L SARS-CoV-2 (PCR) Negative (Negative) Influenza A (RT-PCR) Flu a negative (NEGATIVE) Influenza B (RT-PCR) Flu b negative (NEGATIVE) RSV (PCR) Negative (Negative) Point of care testing: Urine Dip Bedside Urine Glucose Negative Bedside Urine Bilirubin - Negative Bedside Urine Ketone - Negative Urine Specific [place] 1.010 Bedside Urine Occult Blood - Negative Bedside Urine pH 7.0 Bedside Urine Protein - Negative Bedside Urine Urobilinogen - Negative Bedside Urine Nitrite - Negative Bedside Urine Leukocytes - Negative Esterase MDM Narrative Medical decision making narrative: Well-appearing patient with 3 days of symptoms. Abdomen soft, nontender to light and deep palpation. Vital signs unremarkable. Labs reviewed, no significant abnormalities identified. Patient received a L of IV fluids and Zofran and tolerating p.o.. He states that he has been using Zofran at home without relief but for some reason the IV version helped his symptoms. I offered patient Phenergan at home if he feels like he needs another agent to help control his nausea, which he accepted. Phenergan sent to pharmacy of choice. ED return precautions discussed at bedside. Patient expressed understanding of the plan and is in agreement at this time. All questions answered at the time of discharge. Discharge Plan Departure Patient Disposition: Home Clinical Impression: Nausea and vomiting Instructions: Nausea and Vomiting-Adult Activity Restrictions/Additional Instructions: Stay hydrated by drinking plenty of fluids. A different type of nausea medication has been sent to your pharmacy. Prescriptions: New promethazine 25 mg tablet 25 mg PO Q6H PRN (Reason: nausea and vomiting) Qty: 30 0RF No Action budesonide 0.5 mg/2 mL suspension for nebulization 0.5 mg inhalation BID Qty: 180 11RF ipratropium bromide 0.02 % solution 2.5 ml inhalation BID Qty: 150 11RF albuterol sulfate [Ventolin HFA] 90 mcg/actuation HFA aerosol inhaler 2 puff INHALATION QID Qty: 18 11RF chlorthalidone 25 mg tablet 25 mg PO DAILY Qty: 90 3RF lisinopril 20 mg tablet 20 mg PO DAILY Qty: 90 3RF (DME) nebulizers Misc See Rx Instructions .Route Qty: 1 0RF Rx Instructions: As directed albuterol sulfate 2.5 mg /3 mL (0.083 %) solution for nebulization 2.5 mg inhalation QID PRN (Reason: bronchospasm) Qty: 180 11RF clonidine HCl 0.2 mg tablet 0.2 mg PO TID PRN (Reason: hypertensive emergency) Qty: 20 0RF Rx Instructions: For BP >180/110 fluoxetine [Prozac] 40 mg capsule 40 mg PO DAILY Qty: 100 3RF hydroxyzine HCl 25 mg tablet 25 mg PO QID PRN (Reason: anxiety) Qty: 90 5RF pantoprazole [Protonix] 40 mg tablet,delayed release (DR/EC) 40 mg PO DAILY Qty: 30 0RF ondansetron 4 mg tablet,disintegrating 4 mg PO Q8H PRN (Reason: nausea and vomiting) Qty: 20 0RF Referrals: Snow Bowman DO [Primary Care Provider] - Stand Alone Forms: Patient Portal/API/Survey
--- NOTE | 2024-09-20 19:39 | PC.NURSE ---
iv placed by another nurse
[2024-09-20] MEDS: POTASSIUM CHLORIDE 20 MEQ TAB 40 MEQ PO (19:59)
[2024-09-20] MEDS: SODIUM CHLORIDE 0.9% 1,000 ML 1000 ML IV (19:59)
[2024-09-20] MEDS: ONDANSETRON 4 MG/2 ML INJ IV (19:59)
[2024-09-20 20:12] LABS: Influenza A - CEPHEID Flu A NEGATIVE (NEGATIVE); Influenza B - CEPHEID Flu B NEGATIVE (NEGATIVE); Respiratory Syncytial Virus Negative (Negative)
[2024-09-20] MEDS: ONDANSETRON 4 MG ODT PO (20:18)
[2024-09-20 20:23] LABS: COVID-19 CEPHEID 4-PLEX PCR Negative (Negative)
== END 2024-09-20 22:13 | disposition home or self-care (01) ==
PROVIDERS: Student in an Organized Health Care Education/Training Program; Emergency Provider Emergency Medicine; PCP Family Medicine
DX: R11.2 Nausea with vomiting, unspecified (principal); E78.5 Hyperlipidemia, unspecified; I10 Essential (primary) hypertension; J45.909 Unspecified asthma, uncomplicated
CPT/HCPCS: 0241U; 80053; 81003; 83690; 85025; 96361; 96374; 99284; J2405

== ENCOUNTER 2024-09-21 17:27 | Emergency (ER) | payer OTHER, SELFPAY ==
[2024-09-21] VITALS (7 sets, daily range): BP systolic 128–161; BP diastolic 65–92; PULSE 72–85; RESP 18–22; TEMP 36.8; O2SAT 99–100; BMI 34.7
--- NOTE | 2024-09-21 18:30 | PC.NURSE ---
Dr. Feliz instructed RN to cancel NIOs placed in triage by hotel houseman and that she will see him before placing orders.
--- NOTE | 2024-09-21 20:17 | ED_ITS ---
HPI - Abdominal Pain General Chief Complaint: Abdominal Pain Stated Complaint: rtrning pt, abd px, vomiting , nausea, anxiety Time Seen by Provider: 09/21/24 18:10 Source: patient Mode of arrival: Ambulatory History of Present Illness HPI narrative: 28-year-old male presents for midepigastric abdominal pain with vomiting, nausea, anxiety. Patient was seen yesterday in the emergency department for same complaint. I evaluated the patient at that time with unremarkable workup. After laboratory work, Zofran, IV fluids the patient stated that he felt better and that he was almost certain that his symptoms were caused by stress. Patient has been under a lot of stressful situations in his personal life lately and this is causing his symptoms to worsen. Patient was discharged yesterday with Phenergan prescription. He already takes pantoprazole regularly. Patient was concerned because his pain returned and worsened. He is concerned that he may have an ulcer. 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 curbing his nausea Related Data Previous Rx's Medication Instructions Recorded albuterol sulfate 2.5 mg/3 mL 2.5 mg (3 mL) inhalation QID PRN 09/20/22 (0.083 %) solution for nebulization bronchospasm #180 mL clonidine HCl 0.2 mg tablet 0.2 mg PO TID PRN hypertensive 09/20/22 emergency #20 tabs nebulizers #1 ea 09/20/22 budesonide 0.5 mg/2 mL suspension 0.5 mg (2 mL) inhalation BID #180 10/08/23 for nebulization mL ipratropium bromide 0.02 % 2.5 ml inhalation BID shortness of 11/16/23 solution for inhalation breath or wheezing #150 mL albuterol sulfate 90 mcg/actuation 2 puff inhalation QID #18 grams 06/20/24 aerosol inhaler (Ventolin HFA) chlorthalidone 25 mg tablet 25 mg PO DAILY blood pressure #90 07/24/24 tabs ondansetron 4 mg disintegrating 4 mg PO Q8H PRN nausea and 08/27/24 tablet vomiting #20 tabs pantoprazole 40 mg tablet,delayed 40 mg PO DAILY #30 tabs 08/27/24 release (Protonix) lisinopril 20 mg tablet 20 mg PO DAILY #90 tabs 09/15/24 fluoxetine 40 mg capsule (Prozac) 40 mg PO DAILY #100 caps 09/17/24 hydroxyzine HCl 25 mg tablet 25 mg PO QID PRN anxiety #90 tabs 09/17/24 promethazine 25 mg tablet 25 mg PO Q6H PRN nausea and 09/20/24 vomiting #30 tabs sucralfate 1 gram tablet (Carafate) 1 g PO QACHS #60 tabs 09/21/24 Allergies Allergy/AdvReac Type Severity Reaction Status Date / Time No Known Drug Allergies Allergy Verified 09/17/24 16:05 Patient History Medical History Depression, unspecified Mixed hyperlipidemia Morbid obesity IFG (impaired fasting glucose) RAD (reactive airway disease) Surgical History No history of previous surgery (09/2015) Family History Brother Age: 33 Hypertension Grandfather Age: 74 Diabetes mellitus Hypertension Grandmother Age: 73 Diabetes mellitus Hypertension High cholesterol Mother Age: 57 Diabetes mellitus Hypertension Social History Smoking Status: Never smoker Smoking Status: Never smoker alcohol intake frequency: holidays/special occasions only Exam Initial Vital Signs Initial Vital Signs: Vital Signs Temperature 98.3 F 09/21/24 17:34 Pulse Rate 81 09/21/24 17:34 Respiratory Rate 22 09/21/24 17:34 Blood Pressure 130/79 09/21/24 17:34 Pulse Oximetry 100 09/21/24 17:34 Oxygen Delivery Method Room Air 09/21/24 17:34 Const: Awake, alert, no acute distress, nontoxic appearing Cardiac: regular rate, regular rhythm RESP: unlabored, clear bilaterally, no wheezing GI: Soft, minimal midepigastric tenderness to deep palpation, negative Lowry's sign Skin: Warm, Dry, intact, no rashes Neuro: AO x3, CN II-XII grossly intact, moves all extremities Course Orders Ordered: ED Orders 09/21/24 20:53 CBC Auto Diff [Complete Blood Count AUTO DIFF] Stat CMP [Comprehensive Metabolic Panel] Stat Lactate (Lactic Acid) Stat Discontinued Medications Al Hydrox/Mg Hydrox/Simethicone (Mag Hydrox/Alum/Simeth 30 Ml Udc) 30 ml PO NOW ONE Stop: 09/21/24 20:16 Last Admin: 09/21/24 21:23 Dose: 30 ml Documented By: RANDOLPH Diazepam (Diazepam 10 Mg/2 Ml Syringe) 3 mg IV NOW ONE Stop: 09/21/24 20:16 Last Admin: 09/21/24 21:09 Dose: 3 mg Documented By: RANDOLPH Sodium Chloride (Normal Saline 0.9%) 1,000 mls @ 1,000 mls/hr IV BOLUS ONE Stop: 09/21/24 21:14 Last Infusion: 09/21/24 22:16 Dose: Infused Documented By: Admin: 09/21/24 21:09 Dose: 1,000 mls/hr Documented By: RANDOLPH Lidocaine HCl (Lidocaine Viscous 2% 15 Ml Solution) 15 ml PO NOW ONE Stop: 09/21/24 20:16 Last Admin: 09/21/24 21:23 Dose: 15 ml Documented By: RANDOLPH Ondansetron HCl (Ondansetron 4 Mg/2 Ml Inj) 4 mg IV NOW PRN PRN Reason: Nausea And Vomiting Ondansetron HCl (Ondansetron 4 Mg Odt) 4 mg PO NOW PRN PRN Reason: Nausea And Vomiting Ondansetron HCl (Ondansetron 4 Mg/2 Ml Inj) 4 mg IV NOW ONE Stop: 09/21/24 20:16 Last Admin: 09/21/24 21:09 Dose: 4 mg Documented By: RANDOLPH Vital Signs Vital signs: Vital Signs - 8 hr 09/21/24 20:25 09/21/24 20:25 09/21/24 20:30 Pulse Rate 81 Respiratory Rate Blood Pressure 139/72 128/65 Pulse Oximetry 100 Oxygen Delivery Method Room Air 09/21/24 20:30 09/21/24 21:00 09/21/24 21:00 Pulse Rate 72 75 Respiratory Rate Blood Pressure 130/92 H Pulse Oximetry 99 99 Oxygen Delivery Method Room Air Room Air 09/21/24 21:30 09/21/24 21:30 09/21/24 22:00 Pulse Rate 85 77 Respiratory Rate 18 18 Blood Pressure 129/72 Pulse Oximetry 99 99 Oxygen Delivery Method Room Air Room Air 09/21/24 22:00 09/21/24 22:16 09/21/24 22:16 Pulse Rate 83 Respiratory Rate 20 Blood Pressure 152/69 H 161/72 H Pulse Oximetry 99 Oxygen Delivery Method Room Air MDM - Abdominal Pain Lab Data 09/21/24 20:53 09/21/24 20:53 Labs: Lab Results 09/21/24 Range/Units 20:53 WBC 11.7 H (4.5-11.0) X10^3/uL RBC 5.33 (4.5-5.9) X10^6/uL Hgb 14.7 (13.5-17.5) g/dL Hct 41.6 (41-53) % MCV 78.2 L (80-100) fL MCH 27.6 (26-34) PG MCHC 35.3 (30-36) % RDW 12.8 (11.6-14.8) % Plt Count 446 H (150-400) X10^3/uL Neut % (Auto) 81.1 H (50-75) % Lymph % (Auto) 13.0 L (25-40) % Josephine % (Auto) 5.4 (3-14) % Eos % (Auto) 0.1 L (2-4) % Baso % (Auto) 0.4 (0-2) % Neut # (Auto) 9500 H (9700-9943) /uL Lymph # (Auto) 1500 (0983-2238) /uL Josephine # (Auto) 600 (0-900) /uL Eos # (Auto) 0 (0-450) /uL Baso # (Auto) 0 (0-100) /uL Sodium 138 (137-145) mmol/L Potassium 3.1 L (3.4-5.1) mmol/L Chloride 98 (98-107) mmol/L Carbon Dioxide 28 (22-32) mmol/L BUN 10 (9-20) mg/dL Creatinine 1.04 (0.66-1.25) mg/dL Estimated GFR > 60 (>60) mL/min BUN/Creatinine Ratio 9.6 (6-22) Glucose 115 H (70-100) mg/dL Lactate 0.8 (0.7-2.1) mmol/L Calcium 9.3 (8.4-10.2) mg/dL Total Bilirubin 1.1 (0.2-1.3) mg/dL AST 32 (17-59) IU/L ALT 32 (<50) IU/L Alkaline Phosphatase 54 (38-126) U/L Total Protein 8.3 H (6.3-8.2) g/dL Albumin 5.1 H (3.5-5.0) g/dL Globulin 3.2 (1.7-4.1) g/dL Albumin/Globulin Ratio 1.6 (1.0-2.8) MDM Narrative Medical decision making narrative: Patient with recurrent abdominal pain, nausea, vomiting. Concern is that he may have an ulcer. Exam is relatively unremarkable. He was minimal midepigastric tenderness to deep palpation, overall exam similar to yesterday. I explained to the patient that I would not be able to definitively identify an ulcer on exam today and CT has very low sensitivity for ulcers, however I could try to help curb his symptoms with medications here. Patient agreed. Repeat labs sent for comparison. Anxiety medications, GI cocktail ordered. Labs not significantly changed from yesterday. GI cocktail and Valium brought patient's pain to a 2/10 and he has been able to tolerate p.o.. Patient states that he feels much better. Patient counseled to continue to take pantoprazole. Plan to add Carafate to patient's regimen. Counseled following a low acid diet. General surgery referral number provided if he continues to experience symptoms and feels that he may need a scope. Discharge Plan Departure Patient Disposition: Home Clinical Impression: Abdominal pain, Nausea & vomiting Instructions: DI for Abdominal Pain-Adult Activity Restrictions/Additional Instructions: Continue to take your Protonix as well as the prescribed medications for abdominal pain. It may take several days before you notice improvement in your symptoms. If you have recurrent pains a phone number referral for General surgery has been provided to discuss the possibility of a scope. Prescriptions: New sucralfate [Carafate] 1 gram tablet 1 g PO QACHS Qty: 60 0RF No Action budesonide 0.5 mg/2 mL suspension for nebulization 0.5 mg inhalation BID Qty: 180 11RF ipratropium bromide 0.02 % solution 2.5 ml inhalation BID Qty: 150 11RF albuterol sulfate [Ventolin HFA] 90 mcg/actuation HFA aerosol inhaler 2 puff INHALATION QID Qty: 18 11RF chlorthalidone 25 mg tablet 25 mg PO DAILY Qty: 90 3RF lisinopril 20 mg tablet 20 mg PO DAILY Qty: 90 3RF (DME) nebulizers Misc See Rx Instructions .Route Qty: 1 0RF Rx Instructions: As directed albuterol sulfate 2.5 mg /3 mL (0.083 %) solution for nebulization 2.5 mg inhalation QID PRN (Reason: bronchospasm) Qty: 180 11RF clonidine HCl 0.2 mg tablet 0.2 mg PO TID PRN (Reason: hypertensive emergency) Qty: 20 0RF Rx Instructions: For BP >180/110 fluoxetine [Prozac] 40 mg capsule 40 mg PO DAILY Qty: 100 3RF hydroxyzine HCl 25 mg tablet 25 mg PO QID PRN (Reason: anxiety) Qty: 90 5RF pantoprazole [Protonix] 40 mg tablet,delayed release (DR/EC) 40 mg PO DAILY Qty: 30 0RF ondansetron 4 mg tablet,disintegrating 4 mg PO Q8H PRN (Reason: nausea and vomiting) Qty: 20 0RF promethazine 25 mg tablet 25 mg PO Q6H PRN (Reason: nausea and vomiting) Qty: 30 0RF Referrals: Rogelio Shaw MD [Non-Staff] - Snow Bowman DO [Primary Care Provider] - Stand Alone Forms: Patient Portal/API/Survey
[2024-09-21 21:01] LABS: Add Manual Diff / Slide Review NO; Basophils Absolute Auto 0 /uL (0-100); Basophils Percent Auto 0.4 % (0-2); Eosinophils Absolute Auto 0 /uL (0-450); Eosinophils Percent Auto 0.1 % (2-4); Hematocrit 41.6 % (41-53); Hemoglobin 14.7 g/dL (13.5-17.5); Lymphocytes Absolute Auto 1500 /uL (1100-4500); Mean Corpuscular HGB Conc 35.3 % (30-36); Mean Corpuscular Hemoglobin 27.6 PG (26-34); Mean Corpuscular Volume 78.2 fL (80-100); Monocytes Absolute Auto 600 /uL (0-900); Monocytes Percent Auto 5.4 % (3-14); Neutrophils Absolute Auto 9500 /uL (1500-7000); Neutrophils Percent Auto 81.1 % (50-75); Platelet Count 446 X10^3/uL (150-400); Red Blood Cell Count 5.33 X10^6/uL (4.5-5.9); Red Cell Distribution Width 12.8 % (11.6-14.8); White Blood Cell Count 11.7 X10^3/uL (4.5-11.0)
[2024-09-21] MEDS: diazePAM 10 MG/2 ML SYRINGE 3 MG IV (21:09)
[2024-09-21] MEDS: ONDANSETRON 4 MG/2 ML INJ IV (21:09)
[2024-09-21] MEDS: SODIUM CHLORIDE 0.9% 1,000 ML 1000 ML IV (21:09)
[2024-09-21 21:12] LABS: Alanine Aminotransferase 32 IU/L (<50); Albumin 5.1 g/dL (3.5-5.0); Albumin Globulin Ratio 1.6 (1.0-2.8); Alkaline Phosphatase 54 U/L (38-126); Aspartate Aminotransferase 32 IU/L (17-59); BUN Creatinine Ratio 9.6 (6-22); Bilirubin Total 1.1 mg/dL (0.2-1.3); Blood Urea Nitrogen 10 mg/dL (9-20); Calcium 9.3 mg/dL (8.4-10.2); Carbon Dioxide 28 mmol/L (22-32); Chloride 98 mmol/L (98-107); Estimated Glomerular Filt Rate > 60 mL/min (>60); Globulin 3.2 g/dL (1.7-4.1); Glucose 115 mg/dL (70-100); HEMOLYSIS < 15 (0-50); Lactate (Lactic Acid) 0.8 mmol/L (0.7-2.1); Potassium 3.1 mmol/L (3.4-5.1); Sodium 138 mmol/L (137-145); Total Protein 8.3 g/dL (6.3-8.2)
[2024-09-21] MEDS: LIDOCAINE VISCOUS 2% 15 ML SOLUTION PO (21:23)
[2024-09-21] MEDS: MAG HYDROX/ALUM/SIMETH 30 ML UDC PO (21:23)
--- NOTE | 2024-09-22 18:54 | CM.SWNOTE ---
ED MICA SPREADER Follow Up Note: Pt is a 28yo male, resident of [place], presented to the ED on 09/21/2024 for abdominal pain and anxiety. Pt's Primary Care Provider is Dr. Snow Bowman and [facility] [employer] [facility]. Reviewed chart, per order, pt experiencing food insecurity and hoping for food/crisis resources. MICA SPREADER called pt at cell phone number on file, introduced self and role. Pt endorses he does not need any food resources at this time but would benefit from connecting with [facility] as soon as possible. It is identified that pt has a referral by his PCP to see [facility], pt hoping to establish care with them due to increasing anxiety from recent stressful events. Pt provided with [facility] Crisis Line: , declined a need for a follow up call at this time. Pt gave consent for this MICA SPREADER to call [facility] and inquire about referral, pt also provided with main scheduling phone number for [facility]. MICA SPREADER reviewed crisis contracts with patient and return precautions. MICA SPREADER called [facility] main line and left a voice message requesting follow up with patient. Daniela Funes [employer]
== END 2024-09-21 22:53 | disposition home or self-care (01) ==
PROVIDERS: Emergency Provider Emergency Medicine; PCP Family Medicine
DX: R10.13 Epigastric pain (principal); R11.2 Nausea with vomiting, unspecified; F41.9 Anxiety disorder, unspecified; E78.5 Hyperlipidemia, unspecified
CPT/HCPCS: 80053; 83605; 85025; 96361; 96374; 96375; 99284; J2405; J3360